=== PATIENT | male | born 1980 | race Caucasian/White ===

== ENCOUNTER 2017-03-26 13:43 | Emergency (ER) | payer SELFPAY ==
[2017-03-26 13:52] VITALS: BP 129/69
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
== END 2017-03-26 14:45 | disposition home or self-care (01) ==
LOC: UCEAST 13:43
DX: Z04.1 Encounter for examination and observation following transport accident (principal); V23.4XXA Motorcycle driver injured in collision with car, pick-up truck or van in traffic accident, initial encounter; Y93.9 Activity, unspecified; Y92.410 Unspecified street and highway as the place of occurrence of the external cause; Y99.9 Unspecified external cause status; Z72.0 Tobacco use
CPT/HCPCS: 99212; G0463